=== PATIENT | female | born 1995 | race African-American/Black ===

== ENCOUNTER 2016-06-14 17:15 | Emergency (ER) | payer BC, OTHER ==
[~2016-06-14] VITALS: Ht 152.4 cm; Wt 45.0 kg
[2016-06-14 17:16] VITALS: BP 108/62; PULSE 107; RESP 20; TEMP 101.6; O2SAT 100
[2016-06-14 22:24] LABS: AUTOMATED NEUTROPHIL # 9.1 TH/MM3 (1.8-7.7); BASOPHIL # 0.1 TH/MM3 (0-0.2); BASOPHIL % 0.5 % (0.0-2.0); EOSINOPHIL % 0.4 % (0.0-4.0); HEMATOCRIT 37.2 % (35.0-46.0); HEMO FLAGS DIFF FINAL; LYMPH % 6.2 % (9.0-44.0); LYMPHOCYTE # 0.7 TH/MM3 (1.0-4.8); MEAN CELL VOLUME 83.8 FL (80.0-100.0); MEAN CORPUSCULAR HEMOGLOBIN 28.4 PG (27.0-34.0); MEAN CORPUSCULAR HGB CONC 33.9 % (32.0-36.0); NEUT % 86.9 % (16.0-70.0); PLATELET COUNT 297 TH/MM3 (150-450); RED BLOOD COUNT 4.44 MIL/MM3 (4.00-5.30); RED CELL DISTRIBUTION WIDTH 13.2 % (11.6-17.2); WHITE BLOOD COUNT 10.5 TH/MM3 (4.0-11.0)
[2016-06-14 22:44] LABS: ANION GAP 9 MEQ/L (5-15); BICARBONATE 26.5 MEQ/L (21.0-32.0); BLOOD UREA NITROGEN 3 MG/DL (7-18); CHLORIDE 103 MEQ/L (98-107); GLOMERULAR FILTRATION RATE 116 ML/MIN (>89); POTASSIUM 3.5 MEQ/L (3.5-5.1); SODIUM (NA) 138 MEQ/L (136-145)
[2016-06-14 22:49] LABS: CREATINE KINASE 125 U/L (26-192)
[2016-06-14 23:02] LABS: CKMB LESS THAN 0.5 NG/ML (0.5-3.6)
[2016-06-14] MEDS ORDERED: ACETAMINOPHEN 650 MG/20.3 ML UDC PO ONE (23:15)
[2016-06-14] MEDS ORDERED: ONDANSETRON ODT 4 MG TAB PO ONE (23:15)
--- NOTE | 2016-06-14 23:20 | PD ---
HPI Chief Complaint: Throat pain Time Seen by Provider: 23:04 Travel History International Travel<30 days: No Contact w/Intl Traveler<30days: No Traveled to known affect area: No History of Present Illness HPI 20yo F with PMH of strep throat presents to the ED with c/o throat pain since yesterday. Started with that and then started having muscle aches in her sides , thighs and head. +Nausea. States her friends at school has strep throat. Denies any chest pain, sob, vomiting, abdominal pain, focal weakness or numbness. PFSH Past Medical History Medical History: Denies Significant Hx Tetanus Vaccination: > 5 Years Influenza Vaccination: No ?: Not LMP: 03/2016 Past Surgical History Surgical History: No Previous Surgery Social History Alcohol Use: No Tobacco Use: No Substance Use: No Allergies-Medications (Allergen,Severity, Reaction): Coded Allergies: Penicillin (Verified Allergy, Unknown, 06/14/16) Reported Meds & Prescriptions Reported Meds & Active Scripts Active Acetaminophen Extra Strength Liq (Acetaminophen) 500 Mg/15 Ml Soln 500 Mg PO Q6HR PRN 5 Days Review of Systems Except as stated in HPI: all other systems reviewed are Neg Physical Exam Narrative GENERAL: 20yo F not in distress. SKIN: Focused skin assessment warm/dry. HEAD: Atraumatic. Normocephalic. EYES: Pupils equal and round. EOMI. ENT: Throat: Mild erythema. No exudate. Uvula midline. NECK: No nuchal rigidity. +TTP left cervical lymphadenopathy. CARDIOVASCULAR: Regular rate and rhythm. +Murmur. Pt has had this since she was a baby. RESPIRATORY: No accessory muscle use. Clear to auscultation. Breath sounds equal bilaterally. GASTROINTESTINAL: Abdomen soft, +TTP suprapubic region. No rebound tenderness or guarding. MUSCULOSKELETAL: No obvious deformities. No clubbing. No cyanosis. No edema. NEUROLOGICAL: Awake and alert. No obvious cranial nerve deficits. Motor grossly within normal limits. Normal speech. PSYCHIATRIC: Appropriate mood and affect; insight and judgment normal. Data Data Last Documented VS Vital Signs Date Time Temp Pulse Resp B/P Pulse Ox O2 Delivery O2 Flow Rate FiO2 06/15/16 01:46 73 16 107/59 100 Room Air 06/14/16 17:16 101.6 Orders Electrocardiogram (06/14/16 17:39) Complete Blood Count With Diff (06/14/16 21:06) Basic Metabolic Panel (Bmp) (06/14/16 21:06) Ckmb (Isoenzyme) Profile (06/14/16 21:06) Troponin I (06/14/16 21:06) Influenzae A/B Antigen (06/14/16 22:48) CKMB (06/14/16 21:24) CKMB% (06/14/16 21:24) Group A Rapid Strep Screen (06/14/16 23:14) Acetaminophen 650 Mg/20 Ml Liq (Tylenol (06/14/16 23:15) Ondansetron Odt (Zofran Odt) (06/14/16 23:15) Urinalysis - C+S If Indicated (06/14/16 23:15) Ed Urine Pregnancytest Poc (06/14/16 23:15) Chest, Single Ap (06/14/16 ) Soft Tissue Neck (06/14/16 ) Strep Culture (Group A) (06/14/16 23:20) Labs Laboratory Tests Test 06/14/16 06/14/16 21:24 23:25 White Blood Count 10.5 TH/MM3 Red Blood Count 4.44 MIL/MM3 Hemoglobin 12.6 GM/DL Hematocrit 37.2 % Mean Corpuscular Volume 83.8 FL Mean Corpuscular Hemoglobin 28.4 PG Mean Corpuscular Hemoglobin 33.9 % Concent Red Cell Distribution Width 13.2 % Platelet Count 297 TH/MM3 Mean Platelet Volume 8.8 FL Neutrophils (%) (Auto) 86.9 % Lymphocytes (%) (Auto) 6.2 % Monocytes (%) (Auto) 6.0 % Eosinophils (%) (Auto) 0.4 % Basophils (%) (Auto) 0.5 % Neutrophils # (Auto) 9.1 TH/MM3 Lymphocytes # (Auto) 0.7 TH/MM3 Monocytes # (Auto) 0.6 TH/MM3 Eosinophils # (Auto) 0.0 TH/MM3 Basophils # (Auto) 0.1 TH/MM3 CBC Comment DIFF FINAL Differential Comment Sodium Level 138 MEQ/L Potassium Level 3.5 MEQ/L Chloride Level 103 MEQ/L Carbon Dioxide Level 26.5 MEQ/L Anion Gap 9 MEQ/L Blood Urea Nitrogen 3 MG/DL Creatinine 0.77 MG/DL Estimat Glomerular Filtration 116 ML/MIN Rate Random Glucose 96 MG/DL Calcium Level 9.2 MG/DL Total Creatine Kinase 125 U/L Creatine Kinase MB LESS THAN 0.5 NG/ML Troponin I LESS THAN 0.02 NG/ML Urine Color YELLOW Urine Turbidity CLEAR Urine pH 6.0 Urine Specific [place] 1.014 Urine Protein 30 mg/dL Urine Glucose (UA) NEG mg/dL Urine Ketones 150 mg/dL Urine Occult Blood NEG Urine Nitrite NEG Urine Bilirubin NEG Urine Urobilinogen LESS THAN 2.0 MG/DL Urine Leukocyte Esterase NEG Urine WBC 1 /hpf Urine Squamous Epithelial 1 /hpf Cells Urine Bacteria RARE /hpf Urine Mucus FEW /lpf Microscopic Urinalysis Comment CULT NOT INDICATED MDM Medical Decision Making Medical Screen Exam Complete: Yes Emergency Medical Condition: Yes Differential Diagnosis Influenza vs. strep pharyngitis vs. viral syndrome vs. UTI vs. retropharyngeal abscess Narrative Course 20yo F with throat pain, rhinorrhea, cough, generalized muscleache and headache. Pt given acetaminophen liquid and reevaluated at bedside. States she feels much better. Headache has resolved and her throat feels better. Pt is well appearing and tolerating PO. Labs reviewed, no leukocytosis. Troponin negative. Pt had no chest pain on my questioning but this was ordered in triage. UA showed no leukocyte. Influenza and group A strep negative. CXR showed no active disease. Xray soft tissue neck normal. Repeat VS normal. Return precautions given. Diagnosis Primary Impression: Viral syndrome Patient Instructions: General Instructions Departure Forms: Tests/Procedures Additional Instructions: Please follow up with your PMD in 3-7 days. Return to the ED if symptoms worsen. Med/Other Pt SpecificInfo: Prescription(s) given Scripts Acetaminophen Liq (Acetaminophen Extra Strength Liq)500 Mg/15 Ml [id number] Mg PO Q6HR PRN (PAIN SCALE 1 TO 4) 5 Days Ref 0 Prov:Gabby Hernandez DO 06/15/16 Disposition: 01 DISCHARGE HOME Condition: Stable Gabby Hernandez DO Jun 14, 2016 23:20
[2016-06-14 23:46] LABS: BACTERIA, URINE RARE /hpf; BLOOD, URINE NEG (NEG); COMMENT (UR) CULT NOT INDICATED; CULTURE IF INDICATED CULT NOT INDICATED; GLUCOSE,URINE NEG (NEG); KETONE, URINE 150 mg/dL (NEG); MUCUS URINE FEW /lpf (OCC); NITRITE,URINE NEG (NEG); SQUAMOUS EPITHELIAL CELL URINE 1 /hpf (0-5); URINE COLOR YELLOW (YELLW/STRAW)
[2016-06-15 00:03] VITALS: BP 110/68; PULSE 77; RESP 16; O2SAT 99
--- NOTE | 2016-06-15 00:14 | RADRPT ---
EXAM DATE/TIME: 06/14/2016 23:43 [facility] COMPARISON: SOFT TISSUE NECK, June 14, 2016, 23:44. INDICATIONS : Cold with sore throat. MEDICAL HISTORY : None. SURGICAL HISTORY : None. ENCOUNTER: Initial ACUITY: 1 day PAIN SCORE: 0/10 LOCATION: Bilateral chest FINDINGS: A single view of the chest demonstrates the lungs to be symmetrically aerated without evidence of mas s, infiltrate or effusion. The cardiomediastinal contours are unremarkable. Osseous structures are intact. CONCLUSION: 1. No active disease. Arnoldo Morton MD on June 15, 2016 at 0:12 Board Certified Radiologist. This report was verified electronically.
--- NOTE | 2016-06-15 00:15 | RADRPT ---
EXAM DATE/TIME: 06/14/2016 23:44 [facility] COMPARISON: No previous studies available for comparison. INDICATIONS : Sore throat. MEDICAL HISTORY : None. SURGICAL HISTORY : None. ENCOUNTER: Initial ACUITY: 1 day PAIN SCORE: 5/10 LOCATION: Bilateral neck FINDINGS: Two view examination of the soft tissues of the neck demonstrates the hypopharyngeal airway to have a grossly normal configuration. The trachea is midline. No radiopaque foreign bodies are seen. CONCLUSION: Normal examination for a patient of this age. Arnoldo Morton MD on June 15, 2016 at 0:13 Board Certified Radiologist. This report was verified electronically.
[2016-06-15 01:46] VITALS: BP 107/59; PULSE 73; RESP 16; TEMP 98.4; O2SAT 100
[2016-06-15] MEDS ORDERED: ACET500L PO (01:56)
--- NOTE | 2016-06-15 13:25 | EKG ---
Date Performed: 06/14/2016 Time Performed: 17:39:30 PTAGE: 20 years EKG: Sinus rhythm WITH SHORT MI INTERVAL POSSIBLE RIGHT VENTRICULAR CONDUCTION DELAY NONSPECIFIC T-WAVE ABNORMALITY MAYKEL RDERLINE ECG PREVIOUS TRACING : 12/06/2015 19.04 Compared to prior tracing no significant change DOCTOR: Durga Mo Interpretating Date/Time 06/15/2016 13:22:34
== END 2016-06-15 02:00 | disposition home or self-care (01) ==
LOC: NEPE 17:15
DX: B34.9 Viral infection, unspecified (principal); R07.0 Pain in throat; M79.1 Myalgia; R11.0 Nausea; R94.31 Abnormal electrocardiogram [ECG] [EKG]
CPT/HCPCS: 70360; 71010; 80048; 81001; 82550; 82552; 84484; 84703; 85025; 87081; 87804; 87880; 93005